=== PATIENT | male | born 1960 | race Caucasian/White ===

== ENCOUNTER 2017-09-24 06:12 | Day surgery (SDC) | payer MEDICARE ==
[2017-09-22 10:24] VITALS: BMI 26.6
[~2017-09-24 06:12] MED LIST: DEXAMETHASONE SOD PHOSPHATE 10 MG/ML 1 ML VIAL IV ONE; HYDROmorphone 0.5 MG/0.5 ML SYRINGE IVP PRN; LACTATED RINGERS 1,000 ML IV SCH; LIDOCAINE 1% 20 ML VIAL (10MG/ML) FOR IV START INTRADERMA PRN; MIDAZOLAM 2 MG/2 ML VIAL IV PRN; ONDANSETRON 4 MG/2 ML VIAL IVP ONE; SCOPOLAMINE 1.5MG/72HR PATCH TRANSDERM ONE
[2017-09-24 06:36] VITALS: RESP 16; TEMP 97
[2017-09-24] MEDS ORDERED: fentaNYL (PF) 50 MCG/ML 2 ML AMP ONE (07:32)
[2017-09-24] MEDS ORDERED: PROPOFOL 10 MG/ML 20 ML VIAL IV ONE (07:32)
[2017-09-24 08:42] VITALS: BP 123/60; PULSE 66
--- NOTE | 2017-09-24 09:09 | PCN ---
PROCEDURE NOTE PREOPERATIVE DIAGNOSIS: Pancytopenia. POSTOPERATIVE DIAGNOSIS: Pancytopenia. PROCEDURE: Bone marrow aspirate and biopsy. SITE: Right iliac crest. ANESTHESIA: Systemic sedation. [employer]ATION WORKER: Samantha Hyatt. DETAILS: Utilizing sterile technique, the skin overlying the right iliac crest was prepared with Betadine and alcohol. After adequate sterile draping, sized at a size 11, 4-inch Tapshot, Makers of Videokitsshidi needle was utilized to access the periosteum with ease. A total of 15 mL and 5 mm crushed bone core biopsies were obtained. The patient tolerated the procedure very well. There was no immediate procedure related complication. TOTAL BLOOD LOSS: Less than 1 mL. RESULTS: Pending. MMODL / IJN: [id number] /
[2017-09-24 12:21] LABS: Anisocytosis Slight; Basophils % (A) 0 %; Eosinophils % (A) 1 %; HCT 31.3 % (39.0-53.0); HGB 10.3 gm/dL (13.0-17.5); Lymphocytes # (A) 1.8 k/uL (1.0-4.8); Lymphocytes % (A) 83 %; MCHC 32.7 g/dL (31.0-37.0); Macrocytosis Marked; Mean Platelet Volume 8.4; Monocytes % (A) 2 %; Neutrophils # (A) 0.3 k/uL (1.3-7.7); Neutrophils % (A) 11 %; RBC 2.93 m/uL (4.30-5.90); RDW 16.4 % (11.5-15.5); WBC 2.2 k/uL (3.8-10.6)
[2017-09-24 12:22] LABS: Platelet Count 44 k/uL (150-450)
[2017-09-24 12:29] LABS: Poikilocytosis (M) Present; Polychromasia Present
== END 2017-09-24 08:59 | disposition home or self-care (01) ==
LOC: OR 06:12
PROVIDERS: ATTEND Internal Medicine Hematology & Oncology
DX: D46.9 Myelodysplastic syndrome, unspecified (principal); D61.818 Other pancytopenia; E78.5 Hyperlipidemia, unspecified; I10 Essential (primary) hypertension; F32.9 Major depressive disorder, single episode, unspecified; Z87.820 Personal history of traumatic brain injury; Z98.890 Other specified postprocedural states; K21.9 Gastro-esophageal reflux disease without esophagitis; Z80.1 Family history of malignant neoplasm of trachea, bronchus and lung; Z80.3 Family history of malignant neoplasm of breast; Z87.891 Personal history of nicotine dependence; Z79.899 Other long term (current) drug therapy; Z88.4 Allergy status to anesthetic agent
CPT/HCPCS: 38222; 85025; J3010; J2704

== ENCOUNTER 2017-10-29 07:10 | Day surgery (SDC) | payer MEDICARE ==
--- NOTE | 2017-10-28 19:10 | P.GSHP ---
History of Present Illness H&P Date: 10/29/17 CHIEF COMPLAINT: Myelodysplastic syndrome HISTORY OF PRESENT ILLNESS: The patient is a 57-year-old male diagnosed with myelodysplastic syndrome. He needs a Mediport placement for chemotherapy. PAST MEDICAL HISTORY: See list PAST SURGICAL HISTORY: See list CURRENT MEDICATIONS: See list. ALLERGIES: See list. SOCIAL HISTORY: No active tobacco or alcohol use. FAMILY HISTORY: Noncontributory. REVIEW OF ORGAN SYSTEMS: CONSTITUTIONAL: Has weight loss. PHYSICAL EXAMINATION: Vital signs: Stable GENERAL: Well developed and in no acute distress. Pleasant. HEENT: No sclera icterus. Extraocular movements grossly intact. Moist buccal mucosa. Head is atraumatic, normocephalic. Hears conversational speech. No nasal drainage. NECK: Supple without lymphadenopathy. No JV distention. CHEST: Non-labored respirations and equal bilateral excursions. CARDIOVASCULAR: Regular rate and rhythm. Palpable 2+ radial pulses. ABDOMEN: Nontender. MUSCULOSKELETAL: No clubbing, cyanosis or edema. NEUROLOGIC: No focal or lateralizing signs. PSYCH: Appropriate affect. Alert and oriented to person, place and time. ASSESSMENT: 1. Myelodysplastic syndrome 2. Need for chemotherapeutic access. PLAN: 1. Agree with Port-A-Cath placement. Past Medical History Past Medical History: GERD/Reflux, GI Bleed, Hyperlipidemia, Hypertension Additional Past Medical History / Comment(s): HX LOW WBC, HX OF HEAD INJURY, HAS BALANCE ISSUES, STATES WEAKNESS IN ARMS, History of Any Multi-Drug Resistant Organisms: None Reported Additional Past Surgical History / Comment(s): HX OF CRAINIOTOMY, STATES HAD INTESTINES "NICKED" AND HAD SX POST ENDOSCOPY Past Anesthesia/Blood Transfusion Reactions: No Reported Reaction Smoking Status: Former smoker - Past Family History Mother Family Medical History: Cancer Additional Family Medical History / Comment(s): LUNG Sister(s) Family Medical History: Cancer Medications and Allergies Home Medications Medication Instructions Recorded Confirmed Type Acetaminophen/Diphenhydramine 1 each PO HS 09/22/17 09/24/17 History [Tylenol PM Extra Strength] Cholecalciferol (Vitamin D3) 2,000 unit PO DAILY 09/22/17 09/24/17 History [Vitamin D3] Citalopram Hydrobromide [CeleXA] 10 mg PO DAILY 09/22/17 09/24/17 History Docusate Sodium [Dok] 100 mg PO DAILY 09/22/17 09/24/17 History Lisinopril [Prinivil] 10 mg PO DAILY 09/22/17 09/24/17 History Multivitamins, Thera [Multivitamin 1 tab PO DAILY 09/22/17 09/24/17 History (formulary)] Omeprazole [PriLOSEC] 20 mg PO AC-BRKFST 09/22/17 09/24/17 History Simvastatin [Zocor] 20 mg PO DAILY 09/22/17 09/24/17 History Zolpidem Tartrate [Ambien] 10 mg PO HS 09/22/17 09/24/17 History Allergies Allergy/AdvReac Type Severity Reaction Status Date / Time lidocaine Allergy Unknown Verified 09/24/17 06:31
[~2017-10-29 07:10] MED LIST changes: -DEXAMETHASONE SOD PHOSPHATE 10 MG/ML 1 ML VIAL IV ONE; -HYDROmorphone 0.5 MG/0.5 ML SYRINGE IVP PRN; -LACTATED RINGERS 1,000 ML IV SCH; -LIDOCAINE 1% 20 ML VIAL (10MG/ML) FOR IV START INTRADERMA PRN; -MIDAZOLAM 2 MG/2 ML VIAL IV PRN; -ONDANSETRON 4 MG/2 ML VIAL IVP ONE; -SCOPOLAMINE 1.5MG/72HR PATCH TRANSDERM ONE; +ceFAZolin IN SWFI 2 GM/20 ML SYRINGE IVP ONE
[2017-10-29 07:36] VITALS: TEMP 98.6
[2017-10-29] MEDS ORDERED: LACTATED RINGERS 1,000 ML IV ONE (07:36)
[2017-10-29] MEDS ORDERED: ONDANSETRON 4 MG/2 ML VIAL IVP ONE (07:55)
[2017-10-29 08:09] LABS: HCT 29.3 % (39.0-53.0); HGB 9.8 gm/dL (13.0-17.5); MCH 35.7 pg (25.0-35.0); MCHC 33.4 g/dL (31.0-37.0); MCV 106.8 fL (80.0-100.0); Macrocytosis Moderate; Mean Platelet Volume 8.3; RBC 2.74 m/uL (4.30-5.90); RDW 15.6 % (11.5-15.5)
[2017-10-29 08:45] LABS: Platelet Count 35 k/uL (150-450)
[2017-10-29] MEDS ORDERED: PROPOFOL 10 MG/ML 20 ML VIAL IV ONE (08:48)
[2017-10-29] MEDS ORDERED: MIDAZOLAM 2 MG/2 ML VIAL ONE (08:48)
[2017-10-29] MEDS ORDERED: fentaNYL (PF) 50 MCG/ML 2 ML AMP ONE (08:48)
[2017-10-29] MEDS ORDERED: SODIUM CHLORIDE 0.9% 50 ML with ceFAZolin 2,000 MG IV ONE ×2 (08:50)
[2017-10-29] MEDS ORDERED: BUPIVACAINE (PF) 0.25% 30 ML VIAL SQ ONE (09:12)
[2017-10-29] MEDS ORDERED: HEPARIN SODIUM,PORCINE 100 UNIT/ML 5 ML VIAL IV ONE (09:13)
[2017-10-29] MEDS ORDERED: SODIUM CHLORIDE 0.9% 500 ML with HEPARIN SODIUM,PORCINE 5,000 UNIT IV ONE ×2 (09:15)
--- NOTE | 2017-10-29 09:36 | P.HPADDEND ---
H&P Addendum H&P Addendum Date: 10/29/17 Patient has myelodysplastic syndrome. Will proceed with port placement.
--- NOTE | 2017-10-29 09:39 | P.OP ---
Date of Procedure: 10/29/17 Description of Procedure: SURGEON: NARGIS SIMEON MD [facility]: None. PREOPERATIVE DIAGNOSES: 1. Myelodysplastic syndrome 2. Need for chemotherapeutic access. 3. Depression. 4. Hypertensive heart disease. 5. Hyperlipidemia. 6. Gastroesophageal reflux disease. POSTOPERATIVE DIAGNOSES: 1. Myelodysplastic syndrome 2. Need for chemotherapeutic access. 3. Depression. 4. Hypertensive heart disease. 5. Hyperlipidemia. 6. Gastroesophageal reflux disease. PROCEDURES PERFORMED: 1. Ultrasound guided central venous access of the right internal jugular venous vein. 2. Fluoroscopic guidance for central venous access right internal jugular vein less than 1 seconds. 3. Placement of right internal jugular power port 6 [place] by [employer]. ANESTHESIA: IV sedation with local. ESTIMATED BLOOD LOSS: 5 mL. SPECIMENS REMOVED: None. COMPLICATIONS: None. INDICATIONS: The patient is a 57-year-old male recently diagnosed with myelodysplastic syndrome. He presents for chemotherapeutic access. Benefits and risks of surgical intervention were described including bleeding, infection, mechanical problems with his port. Informed consent was obtained. DESCRIPTION OR PROCEDURE: Patient was brought into the operating room, laid in supine position. After adequate IV sedation, the chest and right neck were prepped and draped in a standard sterile fashion including the shoulder with ChloraPrep. Timeout protocol was confirmed with the surgical team regarding the patient's name, procedure to be performed including preoperative medications for which she received IV antibiotics. Bilateral SCDs were placed. An ultrasound was used to capture views of the right internal jugular vein including right carotid artery, which was patent and without thrombus along its course. The right IJ was then localized using anesthetic for the skin. A 16 [place] needle was used to access the IJ. A guidewire was advanced into the IJ with dark nonpulsatile venous blood. Two fingerbreadths distal to the clavicle, on the lateral third, a transverse 1.5 to 2 cm incision was deepened into the skin after localizing the skin. A pocket was created for the port. The port on the back table was flushed with heparinized saline and then attached to the catheter tubing. An adapter was fastened to the actual port site over the tubing. The port easily had fit snug into the pocket. A subcutaneous tunneler was placed along the open end of the tubing and brought out through the separate stab incision. Fluoroscopic guidance confirmed no kinking along the tubing and the port site. Next, the J-wire was exchanged for a catheter sheath for which the tubing was cut to 20 cm and then advanced through the catheter sheath. The Peel-away sheath was then removed and the tubing was secured at the junction of the superior vena cava as well as the right atrium. The tubing was found to be crossed however functional. This was all done under fluoroscopic guidance under 1 seconds. Easy pullback as well as return and aspiration was obtained of the port site. The skin incision was closed using layers using 3-0 Vicryl for the subcu followed by 4-0 Monocryl in a running subcuticular fashion. At the stick site this was also reapproximated using 4-0 Monocryl. The incisions were covered with Optifoam, The skin was cleansed and Exofin liquid glu was applied. A total of 20 mL of local anesthetic was placed. At the end of the procedure, needle, sponge, and instrument count was verified correct by power technician. Heparin lock of 5 mL was placed. The patient was awoken and pain free and taken to the second stage postanesthesia care unit. The patient tolerated the procedure well. FINDINGS: 1. No thrombus encountered along the right carotid artery or internal jugular vein. 2. Access of the right internal jugular vein under ultrasound guidance. 3. Fluoroscopy of less than 1 seconds. Plan - Discharge Summary New Discharge Prescriptions: No Action Omeprazole [PriLOSEC] 20 mg PO AC-BRKFST Multivitamins, Thera [Multivitamin (formulary)] 1 tab PO DAILY Lisinopril [Prinivil] 10 mg PO DAILY Citalopram Hydrobromide [CeleXA] 10 mg PO DAILY Zolpidem Tartrate [Ambien] 10 mg PO HS Simvastatin [Zocor] 20 mg PO DAILY Docusate Sodium [Dok] 100 mg PO DAILY Cholecalciferol (Vitamin D3) [Vitamin D3] 2,000 unit PO DAILY Acetaminophen/Diphenhydramine [Tylenol PM Extra Strength] 1 each PO HS Discharge Medication List Acetaminophen/Diphenhydramine [Tylenol PM Extra Strength] 1 each PO HS 09/22/17 [History] Cholecalciferol (Vitamin D3) [Vitamin D3] 2,000 unit PO DAILY 09/22/17 [History] Citalopram Hydrobromide [CeleXA] 10 mg PO DAILY 09/22/17 [History] Docusate Sodium [Dok] 100 mg PO DAILY 09/22/17 [History] Lisinopril [Prinivil] 10 mg PO DAILY 09/22/17 [History] Multivitamins, Thera [Multivitamin (formulary)] 1 tab PO DAILY 09/22/17 [History ] Omeprazole [PriLOSEC] 20 mg PO AC-BRKFST 09/22/17 [History] Simvastatin [Zocor] 20 mg PO DAILY 09/22/17 [History] Zolpidem Tartrate [Ambien] 10 mg PO HS 09/22/17 [History]
[2017-10-29 09:46] VITALS: RESP 18
[2017-10-29] MEDS ORDERED: HYDROcodone/APAP 5-325MG 1 EACH TAB PO ONE (10:16)
--- NOTE | 2017-10-29 10:17 | XR ---
EXAMINATION TYPE: XR chest 1V confirm line [facility] [place] DATE OF EXAM: 10/29/2017 HISTORY: Line placement. COMPARISON: None. TECHNIQUE: Single view of the chest is submitted. FINDINGS: Demonstrated are scattered senescent parenchymal change. Right-sided MediPort catheter is appropriat melchor placed with distal tip overlying the SVC. No evidence for pneumothorax. There is no evidence for focal infiltrate. The heart is stable. Hilar and mediastinal structures are within normal limits. Degenerative changes are seen of the dorsal spine. IMPRESSION: 1. Right-sided MediPort catheter is appropriately placed with distal tip overlying the SVC. No evide nce for pneumothorax.
[2017-10-29 11:13] VITALS: BP 112/72; PULSE 69
--- NOTE | 2017-10-29 12:19 | FL ---
Fluoroscopy HISTORY: Port-A-Cath placement 1 seconds fluoroscopy time supplied to the referring clinician. 1 int raoperative C-arm images document the procedure. See dictated report from general surgery.
== END 2017-10-29 11:25 | disposition home or self-care (01) ==
LOC: OR 07:10
PROVIDERS: ATTEND Surgery Plastic and Reconstructive Surgery
DX: D46.9 Myelodysplastic syndrome, unspecified (principal); K21.9 Gastro-esophageal reflux disease without esophagitis; E78.5 Hyperlipidemia, unspecified; I11.9 Hypertensive heart disease without heart failure; F32.9 Major depressive disorder, single episode, unspecified; Z87.891 Personal history of nicotine dependence; Z79.899 Other long term (current) drug therapy
CPT/HCPCS: 85027; 77001; 36561; C1788; J2250; J1644; J1642; J2405; J3010; J0690; J2704